=== PATIENT | female | born 1960 | race Caucasian/White ===

== ENCOUNTER → 2016-12-22 | Outpatient (REF) | payer OTHER | LOC: M SFHCCLAY 11:34 | PROVIDERS: ATTEND Family Medicine | DX: D22.9 Melanocytic nevi, unspecified (principal) ==

== ENCOUNTER → 2019-05-29 | Outpatient (REF) | payer OTHER ==
[2019-05-29 17:19] LABS: HEMATOCRIT 36.4 % (36.0-47.0); HEMOGLOBIN 11.3 g/dl (12.0-15.5); MEAN CORPUSCULAR HEMOGLOBIN 31.1 pg (27.0-33.0); MEAN CORPUSCULAR VOLUME 100.3 fl (80.0-96.0); PLATELET COUNT, AUTOMATED 259 10^3/uL (150-450); RED BLOOD COUNT 3.63 10^6/uL (4.00-5.40); WHITE BLOOD COUNT 6.3 10^3/uL (4.0-10.0)
[2019-05-29 18:35] LABS: ALBUMIN 3.2 GM/DL (3.2-5.2); ALT/SGPT 14 U/L (12-78); BILIRUBIN,TOTAL 0.5 MG/DL (0.2-1.0); BLOOD UREA NITROGEN 12 MG/DL (7-18); CALCIUM LEVEL 10.1 MG/DL (8.8-10.2); CARBON DIOXIDE LEVEL 29 MEQ/L (21-32); CHLORIDE LEVEL 104 MEQ/L (98-107); CHOLESTEROL LEVEL 181 MG/DL (<200); CHOLESTEROL RISK RATIO 4.209 (<5); CREATININE FOR GFR 0.88 MG/DL (0.55-1.30); GLOMERULAR FILTRATION RATE > 60.0 (>45); GLUCOSE, FASTING 91 MG/DL (70-100); HDL CHOLESTEROL 43 MG/DL (>40); LDL CHOLESTEROL 119 MG/DL (<100); NON-HDL-C 138 MG/DL; POTASSIUM SERUM 4.5 MEQ/L (3.5-5.1); SODIUM LEVEL 138 MEQ/L (136-145); THYROXINE (T4) 7.9 UG/DL (4.5-12.0); TOTAL PROTEIN 10.8 GM/DL (6.4-8.2); TRIGLYCERIDES LEVEL 97 MG/DL (<150)
[2019-05-29 19:05] LABS: ATYPICAL LYMPH 3 % (0-5); BASOPHILS 1 % (0-1); LYMPHOCYTES 42 % (16-44); MONOCYTES 7 % (0-5); NEUTROPHILS 47 % (28-66)
[2019-05-29 19:06] LABS: PLATELET ESTIMATE NORMAL (NORMAL)
== END ==
LOC: M SFHCCLAY 09:22
PROVIDERS: ATTEND Family Medicine
DX: E78.2 Mixed hyperlipidemia (principal); R42 Dizziness and giddiness; R00.2 Palpitations

== ENCOUNTER → 2021-04-14 | Outpatient (REF) | payer OTHER | LOC: M SFHCCLAY 15:51 | PROVIDERS: ATTEND Family Medicine | DX: L50.9 Urticaria, unspecified (principal) ==

== ENCOUNTER → 2021-06-21 | Outpatient (CLI) | payer BC, OTHER ==
--- NOTE | 2021-06-21 13:43 | REP ---
INDICATION: PAIN IN RT ARM/RT SHOULDER. COMPARISON: None. TECHNIQUE: Coronal oblique T1, T2 fat sat, sagittal oblique T2 fat sat, axial T2 fat sat, gradient echo. FINDINGS: Rotator cuff: There is moderate diffuse tendinopathy/tendinitis of the supraspinatus tendon. There are areas of partial bursal surface and undersurface tearing of the tendon, with no full-thickness tear. Acromioclavicular joint: There are mild hypertrophic degenerative changes of the acromioclavicular joint. Acromion: Type 1, the acromion is somewhat downward sloping. Biceps Tendon: In bicipital groove, there is mild surrounding fluid, which may represent mild tenosynovitis. Hill Sach's deformity: None. Deltoid muscle: No abnormal signal. Biceps labral complex: There is a tear of the biceps labral complex. Labrum: There is a SLAP tear. Cartilage: No defects. Bone marrow: Few tiny subcortical cysts are seen in the superolateral humeral head. Joint fluid: There is a small joint effusion, with a tiny amount of fluid in the subacromial/subdeltoid bursae. IMPRESSION: There is moderate diffuse tendinopathy/tendinitis of the supraspinatus tendon. There are areas of partial bursal surface and undersurface tearing of the tendon, with no full-thickness tear. There are mild hypertrophic degenerative changes of the acromioclavicular joint with downward sloping, type 1 acromion. The biceps tendon is in the bicipital groove with mild surrounding fluid which may represent mild tenosynovitis. There is tear of the biceps labral complex with an associated diffuse SLAP tear. Small joint effusion. <Electronically signed by Prudencio Vega > 06/21/21 [id number]
== END ==
LOC: M PLAIMG 10:50
PROVIDERS: ATTEND Family Medicine
DX: M79.601 Pain in right arm (principal); M67.813 Other specified disorders of tendon, right shoulder; M19.019 Primary osteoarthritis, unspecified shoulder; M25.411 Effusion, right shoulder

== ENCOUNTER → 2024-10-21 | Outpatient (REF) | payer MEDICARE, BC | LOC: M SFHCCLAY 11:42 | PROVIDERS: ATTEND Physician Assistant | DX: R22.43 Localized swelling, mass and lump, lower limb, bilateral (principal) ==